=== PATIENT | male | born 1985 | race Two or more races ===

== ENCOUNTER 2025-02-19 12:22 | Outpatient (CLI) | payer OTHER, SELFPAY | END 2025-02-19 12:23 | disposition home or self-care (01) | LOC: AMB 02-21 14:26 | PROVIDERS: Visit Provider Emergency Medicine | DX: S89.92XA Unspecified injury of left lower leg, initial encounter (principal); S82.892A Other fracture of left lower leg, initial encounter for closed fracture; Y29.XXXA Contact with blunt object, undetermined intent, initial encounter; Y92.89 Other specified places as the place of occurrence of the external cause | CPT/HCPCS: A0425; A0427 ==